=== PATIENT | female | born 1995 | race Caucasian/White ===

== ENCOUNTER 2018-11-13 22:46 | Emergency (ER) | payer SELFPAY ==
[~2018-11-13] VITALS: Ht 132.1 cm; Wt 63.5 kg
[2018-11-13 22:59] VITALS: Ht 132.1 cm; Wt 63.5 kg
[2018-11-14 01:16] LABS: AMPHETAMINE QUAL UR POSITIVE (See below)
[2018-11-14 02:23] VITALS: BP 128/85
== END 2018-11-14 02:23 | disposition home or self-care (01) ==
LOC: ED 22:46
PROVIDERS: Emergency Medicine
DX: R10.30 Lower abdominal pain, unspecified (principal); F15.10 Other stimulant abuse, uncomplicated; F17.210 Nicotine dependence, cigarettes, uncomplicated
CPT/HCPCS: 87491; 87591; 99406; J1885